=== PATIENT | female | born 1980 | race Caucasian/White ===

== ENCOUNTER 2021-01-07 11:45 | Emergency (ER) | payer BC ==
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
[2021-01-07] MEDS ORDERED: Bacitracin Oint 1 GM U/D Packet TOP ONE (12:47)
[2021-01-07] MEDS ORDERED: Diphtheria,Pertussis(Acell),Tetanus Vaccine 0.5 ML Syringe IM ONE (12:48)
== END 2021-01-07 14:00 | disposition home or self-care (01) ==
LOC: JP.ED 11:45
DX: S91.012A Laceration without foreign body, left ankle, initial encounter (principal); Z23 Encounter for immunization; W26.8XXA Contact with other sharp object(s), not elsewhere classified, initial encounter; Y93.55 Activity, bike riding
CPT/HCPCS: 12004; 90471; 90715; 99282